=== PATIENT | male | born 1990 | race Caucasian/White ===

== ENCOUNTER 2023-10-23 05:59 | Emergency (ER) | payer OTHER ==
[~2023-10-23] VITALS: Ht 175.3 cm; Wt 86.3 kg
[2023-10-23] MEDS: METOCLOPRAMIDE HCL 5MG/ml INJ 2ml VIAL IV ONE (07:30)
[2023-10-23] MEDS: SODIUM CHLORIDE 0.9% 1,000 ML IVB ONE (07:30)
[2023-10-23] MEDS: KETOROLAC TROMETH 30 MG/ML 1ML VIAL IV ONE (07:30)
[2023-10-23 08:11] LABS: Basophils # (auto) 0 10 ^3/uL (0-0.2); Basophils % (auto) 0.1 % (0.0-2.0); Eosinophils # (auto) 0.1 10 ^3/uL (0-0.8); Eosinophils % (auto) 0.8 % (0.0-7.0); Hematocrit 50.1 % (41.0-53.0); Lymphocytes # (auto) 1.4 10 ^3/uL (0.4-5.4); Lymphocytes % (auto) 13.3 % (10.0-50.0); Mean Corpuscular Hemoglobin 30.1 pg (28.0-32.0); Mean Corpuscular Volume 88.4 fL (80.0-100.0); Monocytes # (auto) 0.5 10 ^3/uL (0-1.3); Monocytes % (auto) 4.3 % (0.0-12.0); Neutrophils # (auto) 8.7 10 ^3/uL (1.6-8.6); Neutrophils % (auto) 81.5 % (37.0-80.0); Nucleated Red Blood Cells % 0.1 %; Red Blood Cells 5.66 10^6/uL (4.5-5.90); Red Cell Distribution Width 12.8 % (11.8-14.3); White Blood Cell 10.7 10^3/uL (4.4-10.8)
[2023-10-23] MEDS: TAMSULOSIN HYDROCHLORIDE 0.4 MG CAP PO ONE (08:16)
[2023-10-23 08:30] LABS: Alanine Aminotransferase 94 U/L (7-40); Albumin 5.1 g/dL (3.2-4.8); Alkaline Phosphatase 97 U/L (46-116); Anion Gap 6 (5-15); Aspartate Aminotransferase 54 U/L (13-40); Blood Urea Nitrogen 14 mg/dL (9-23); Calcium 10.1 mg/dL (8.5-10.1); Carbon Dioxide 28 mmol/L (20-30); Chloride 104 mmol/L (98-107); Glucose 106 mg/dL (74-106); Potassium 4.3 mmol/L (3.5-5.1); Sodium 138 mmol/L (136-145)
[2023-10-23 08:31] LABS: Bilirubin, Total 0.7 mg/dL (0.2-1.0)
[2023-10-23 08:34] LABS: Urine Bacteria None Seen /hpf (None Seen)
[2023-10-23 08:49] LABS: Urine Blood 3+ /uL (Negative); Urine Clarity Clear (Clear); Urine Color Yellow (Yellow); Urine Mucus FEW (None Seen); Urine Protein, UAD TRACE (Negative); Urine Specific Gravity 1.026 (1.001-1.035); Urine Urobilinogen Normal (Negative); Urine WBC 2 /hpf (0 - 3); Urine pH 5.5 (5.0-9.0)
[2023-10-23 09:05] LABS: Lipase 54 U/L (12-53)
[2023-10-23 09:06] LABS: Magnesium 2.2 mg/dL (1.6-2.6)
[2023-10-23] MEDS ORDERED: HYDR-4902 PO (10:15)
[2023-10-23] MEDS ORDERED: TAMS-35 PO (10:15)
[2023-10-23 10:44] VITALS: BP 128/88; PULSE 73; RESP 18; TEMP 98; O2SAT 98
== END 2023-10-23 10:53 | disposition home or self-care (01) ==
LOC: ER 05:59
DX: J45.909 Unspecified asthma, uncomplicated (principal); E78.5 Hyperlipidemia, unspecified; I10 Essential (primary) hypertension; Z87.442 Personal history of urinary calculi; Z88.6 Allergy status to analgesic agent
CPT/HCPCS: 36415; 74176; 80053; 81001; 83690; 83735; 85025